=== PATIENT | female | born 1965 | race Caucasian/White ===

== ENCOUNTER → 2024-10-29 | Day surgery (SDC) | payer BC ==
[~2024-10-29] MED LIST: FENTANYL CITRATE/PF 100MCG/2 ML INJ ONE; GLYCOPYRROLATE INJ 0.2 MG/ML VIAL ONE; LIDOCAINE HCL 2% LOCAL INJ 5 ML SDV VIAL INJ ONE; MIDAZOLAM HCL 2 MG/2 ML VIAL ONE; MOUNJARO10 MG/0.5 SC; PREVACID30 M1 PO; PROPOFOL IV EMULSION 10 MG/ML 20 ML VIAL ONE; TOPAMAX100 MG PO; VIT D3 PO; ZESTRIL10 MG PO
[2024-10-29 09:38] VITALS: TEMP 97.9
[2024-10-29] MEDS: LACTATED RINGER'S 1,000 ML ONE (09:44)
[2024-10-29 10:05] VITALS: BP 118/81; PULSE 85; RESP 16; O2SAT 96
== END | disposition home or self-care (01) ==
LOC: OR 07:02
PROVIDERS: ATTEND Internal Medicine Gastroenterology
DX: K22.70 Barrett's esophagus without dysplasia (principal); K31.7 Polyp of stomach and duodenum; K29.50 Unspecified chronic gastritis without bleeding; K31.89 Other diseases of stomach and duodenum; K21.9 Gastro-esophageal reflux disease without esophagitis; K44.9 Diaphragmatic hernia without obstruction or gangrene; R10.2 Pelvic and perineal pain; K59.00 Constipation, unspecified; D64.9 Anemia, unspecified; E11.9 Type 2 diabetes mellitus without complications; I10 Essential (primary) hypertension; I49.8 Other specified cardiac arrhythmias; Z88.0 Allergy status to penicillin; Z79.1 Long term (current) use of non-steroidal anti-inflammatories (NSAID); Z79.85 Long-term (current) use of injectable non-insulin antidiabetic drugs; Z79.899 Other long term (current) drug therapy; Z68.32 Body mass index [BMI] 32.0-32.9, adult
CPT/HCPCS: 43239; 93005; J2003; J2250; J2704; J3010; J7121